=== PATIENT | male | born 1980 | race Caucasian/White ===

== ENCOUNTER 2025-01-24 23:40 | Emergency (ER) | payer OTHER, SELFPAY ==
--- NOTE | 2025-01-24 23:41 | ECG_ITS ---
[facility] Test Date: 2025-01-24 Pat Name: Aiden Marie Department: Room: Gender: Male Assessment Consultant: : 1980 Requested By: Joshua Becerra Order Number: [id number] Kalia MD: Pily Contreras M.D. Measurements Intervals [place] Rate: 80 P: 146 WI: 162 QRS: 124 QRSD: 114 T: 133 QT: 401 QTc: 465 Interpretive Statements SINUS RHYTHM ARM LEADS REVERSED [INVERTED P AND QRS IN I] No previous ECG available for comparison Electronically Signed On 01-26-2025 13:10:11 CDT by Pily Contreras M.D. [id number] [id number]
[2025-01-24 23:45] VITALS: BP 171/90; PULSE 85; RESP 16; O2SAT 97; BMI 28.5
--- NOTE | 2025-01-24 23:56 | XRR_ITS ---
PROCEDURE INFORMATION: Exam: XR Chest Exam date and time: 01/25/2025 12:00 AM Age: 44 years old Clinical indication: Chest wall pain; Additional info: Chest pain, hypertension, left shoulder pain TECHNIQUE: Imaging protocol: Radiologic exam of the chest. Views: 1 view. COMPARISON: No relevant prior studies available. FINDINGS: Lungs: Unremarkable. No consolidation. Pleural spaces: Unremarkable. No pleural effusion. No pneumothorax. Heart/Mediastinum: Unremarkable. No cardiomegaly. Bones/joints: Unremarkable. XR/XR chest 1V portable [id number] IMPRESSION: No acute findings.
--- NOTE | 2025-01-24 23:59 | W.ED.EXTPRO ---
HPI - Extremity Problem General: Chief complaint: Extremity Problem,Nontraumatic Stated complaint: CP SOB Time Seen by Provider: 01/24/25 23:49 History of Present Illness: Patient presents to the ER with bilateral arm complaints. He said last night while he was sleeping he woke up felt his right arm was tingly and it felt like someone put an ice cube and rub it on his arm he rolled over went back to bed and then today was coming out from work he broke out in a sweat and noticed his left arm from the shoulder down hurt. He also had some chest pain at that time. Patient does have a history of 3 stents and [place] multiple years ago. When he got home his checked his blood pressure and it was 170/100. Patient did take his evening dose of metoprolol and 2 81 mg aspirins. When of patient arrived to the ER his blood pressure 171/90. Patient is no longer having any pain however he decided he wanted to still be checked out. Related Data Allergies Allergy/AdvReac Type Severity Reaction Status Date / Time No Known Allergies Allergy Verified 01/24/25 23:47 Review of Systems General: Reports: 10 or more systems reviewed and unremarkable except in HPI and below Physical Exam Const: COMMON NORMALS: no acute distress, average body habitus, patient oriented x3, no limitations, healthy appearing, alert and well nourished HENMT: COMMON NORMALS: normocephalic, atraumatic, hearing grossly normal bilaterally, external ears normal, Normal external nose present, moist oral mucous membranes and oropharynx normal HEAD & SCALP: normocephalic and atraumatic NOSE: Normal external nose present EXTERNAL EAR: Yes external ears normal Eye: COMMON NORMALS: Equal, round and reactive pupils present, EOMs intact bilaterally, conjunctivae normal and no scleral icterus CONJUNCTIVA: Yes conjunctivae normal PUPIL: Yes Equal, round and reactive pupils present Neck/C-Spine: COMMON NORMALS: full ROM, no lymphadenopathy, supple, no meningeal signs and no JVD Chest: COMMONS NORMALS: normal inspection of the chest and normal palpation of entire chest wall Resp: COMMON NORMALS: normal respiratory effort, No retractions, No use of accessory muscles and clear to auscultation bilaterally AUSCULTATION: clear to auscultation bilaterally Cardio: COMMON NORMALS: no JVD, regular rate, regular rhythm, S1 normal heart sound present, S2 normal heart sound present, No gallops present (Cardio), No clicks present (Cardio), No murmurs present (Cardio) and No rub (Cardio) RATE: regular rate RHYTHM: regular rhythm HEART SOUNDS: S1 normal heart sound present and S2 normal heart sound present GI: COMMON NORMALS: Normal to inspection, nondistended, normoactive bowel sounds present, Soft to palpation, non-tender, No hepatosplenomegaly present and no masses PALPATION: Yes Soft to palpation and Yes No hepatosplenomegaly present Neuro: COMMON NORMALS: patient oriented x3 SENSORIUM/ORIENTATION: Yes alert MENINGEAL SIGNS: Yes no meningeal signs Course Vital Signs: Vital signs: Vital Signs Pulse Rate 62 01/25/25 01:36 Respiratory Rate 12 01/25/25 01:36 Blood Pressure 163/86 01/25/25 01:36 Pulse Oximetry 98 01/25/25 01:36 Oxygen Delivery Me thod Room Air 01/24/25 23:45 MDM - Extremity (Nontraumatic) Medical Decision Making Your evaluation was unremarkable lab work all within normal limits as well as EKG showed no significant changes chest x-ray was negative. Patient will be discharged home. Medical Records I reviewed the patient's medical records. Lab Data I reviewed the patient's lab results. 01/24/25 23:54 01/24/25 23:54 Radiology Impressions Chest X-Ray 01/24/25 23:56 IMPRESSION: No acute findings. Laboratory Results WBC 6.26 10^3/uL (3.29-11.43) 01/24/25 23:54 RBC 4.56 10^6/uL (3.85-5.65) 01/24/25 23:54 Hgb 13.50 g/dL (11.27-16.99) 01/24/25 23:54 Hct 40.8 % (37-53) 01/24/25 23:54 MCV 89.5 fl (82-101) 01/24/25 23:54 MCH 29.6 pg (27-33) 01/24/25 23:54 MCHC 33.1 g/dL (30-55) 01/24/25 23:54 RDW 12.1 % (12.1-15.1) 01/24/25 23:54 Plt Count 175 10^3/cmm (157-399) 01/24/25 23:54 MPV 10.5 fL (7.4-10.4) H 01/24/25 23:54 Neut % (Auto) 66.0 % 01/24/25 23:54 Lymph % (Auto) 25.9 % 01/24/25 23:54 [place] % (Auto) 6.4 % 01/24/25 23:54 Eos % (Auto) 1.3 % 01/24/25 23:54 Baso % (Auto) 0.2 % 01/24/25 23:54 Neut # (Auto) 4.14 10^3/uL (1.8-7.7) 01/24/25 23:54 Lymph # (Auto) 1.6 10^3/uL (0.8-4.8) 01/24/25 23:54 [place] # (Auto) 0.4 10^3/uL (0.2-0.9) 01/24/25 23:54 Eos # (Auto) 0.1 10^3/uL (0.0-0.8) 01/24/25 23:54 Baso # (Auto) 0.0 10^3/uL (0.0-0.1) 01/24/25 23:54 Nucleated RBC % (auto) 0 % 01/24/25 23:54 Nucleated RBCs # 0.0 /100WBC 01/24/25 23:54 Sodium 142 mmol/L (136-145) 01/24/25 23:54 Potassium 4.0 mmol/L (3.5-5.1) 01/24/25 23:54 Chloride 104 mmol/L (98-107) 01/24/25 23:54 Carbon Dioxide 25 mmol/L (22-29) 01/24/25 23:54 Anion Gap 17.0 (5-19) 01/24/25 23:54 BUN 15 mg/dL (6-20) 01/24/25 23:54 Creatinine 0.8 mg/dL (0.7-1.2) 01/24/25 23:54 GFR Calculation 106.0 mL/min (90-130) 01/24/25 23:54 Glucose 146 mg/dL (65-115) H 01/24/25 23:54 Calculated Osmolality 297 mOsm/kg (285-295) H 01/24/25 23:54 Calcium 9.1 mg/dL (8.5-10.5) 01/24/25 23:54 Magnesium 1.9 mg/dL (1.7-2.3) 01/24/25 23:54 Total Bilirubin 0.4 mg/dL (0.15-1.2) 01/24/25 23:54 AST 24 U/L (0-40) 01/24/25 23:54 ALT 34 U/L (0-41) 01/24/25 23:54 Alkaline Phosphatase 67 U/L (40-130) 01/24/25 23:54 Troponin T Baseline < 6 ng/L (0-15) 01/24/25 23:54 Total Protein 6.8 g/dL (6.6-8.7) 01/24/25 23:54 Albumin 4.4 g/dL (3.5-5.2) 01/24/25 23:54 Globulin 2.4 g/dL (1.3-4.6) 01/24/25 23:54 Urine Color Yellow (Yellow) 01/25/25 00:14 Urine Appearance Clear (CLEAR) 01/25/25 00:14 Urine pH 5 (5-7) 01/25/25 00:14 Ur Specific [place] 1.030 (1.005-1.030) 01/25/25 00:14 Urine Protein Neg (Negative) 01/25/25 00:14 Urine Glucose (UA) Norm (Normal) 01/25/25 00:14 Urine Ketones Negative (Negative) 01/25/25 00:14 Urine Blood Neg (Negative) 01/25/25 00:14 Urine Nitrate Negative (Negative) 01/25/25 00:14 Urine Bilirubin Neg (Negative) 01/25/25 00:14 Urine Urobilinogen Neg mg/dL (Negative) 01/25/25 00:14 Ur Leukocyte Esterase Negative (Negative) 01/25/25 00:14 Urine RBC 0-2 /hpf (0-2) 01/25/25 00:14 Urine WBC 0-5 /hpf (0-5) 01/25/25 00:14 Ur Squamous Epith Cells 0-5 /hpf (0-5) 01/25/25 00:14 Amorphous Sediment Not Reportable 01/25/25 00:14 Urine Bacteria None seen /hpf (NONE) 01/25/25 00:14 Hyaline Casts 0.81 /lpf 01/25/25 00:14 All radiology interpretation(s) finalized by discharge Discharge Plan Discharge Patient Disposition: Home Clinical Impression: Acute shoulder pain, Atypical chest pain Condition: Stable Discharge Orders: Discharge ED (Routine); Ordered 01/25/25 Ordered By: Joshua Becerra Patient Instructions: Chest Pain - Noncardiac, Shoulder Pain (ED) Activity Restrictions/Additional Instructions: Thank you for choosing [facility] for your healthcare needs today. Please realize that you were seen in the emergency department and that we are providing you with an emergency medical screening exam and this may not be a complete and all exclusive of all testing and/or medical workup we may need to determine your element or severity of your illness. It is very important that you follow-up as instructed with your primary care provider or specialist for the additional evaluation and to discuss your medical treatment plan. You may return to the emergency department should you have concerns or if your condition changes or worsens in any way. Print Language: Tamazight Coding Level of Care Code ED Line Painting Machine Operator for Jeannine Nation
[2025-01-25 00:13] LABS: Basophils % 0.2 %; Eosinophils # 0.1 10^3/uL (0.0-0.8); Eosinophils % 1.3 %; Hematocrit 40.8 % (37-53); Lymphocytes # 1.6 10^3/uL (0.8-4.8); Lymphocytes % 25.9 %; Mean Corpuscular HGB Conc 33.1 g/dL (30-55); Mean Corpuscular Hemoglobin 29.6 pg (27-33); Mean Corpuscular Volume 89.5 fl (82-101); Mean Platelet Volume 10.5 fL (7.4-10.4); Monocytes # 0.4 10^3/uL (0.2-0.9); Monocytes % 6.4 %; Neutrophils # 4.14 10^3/uL (1.8-7.7); Nucleated Red Blood Cells % 0 %; Platelet Count 175 10^3/cmm (157-399); Red Blood Count 4.56 10^6/uL (3.85-5.65); Red Cell Distribution Width 12.1 % (12.1-15.1); White Blood Count 6.26 10^3/uL (3.29-11.43)
[2025-01-25 00:18] VITALS: BP 163/86; PULSE 71; RESP 15; O2SAT 97
[2025-01-25 00:21] LABS: Add Urine Microscopic? NO
[2025-01-25 00:25] LABS: Bilirubin Urine Neg (Negative); Blood Urine Neg (Negative); Glucose Urine UA Norm (Normal); Ketones Urine Negative (Negative); Leukocyte Esterase Urine Negative (Negative); Nitrate Urine Negative (Negative); Protein Urine Neg (Negative); Urine Appearance Clear (CLEAR); Urine Color Yellow (Yellow); Urobilinogen Urine Neg (Negative); pH Urine 5 (5-7)
[2025-01-25 00:26] LABS: Bacteria Urine None Seen /hpf; Charge for UA Resulting for Rev; Hyaline Casts Urine 0.81 /lpf; RBC Urine 0-2 /hpf (0-2); Squamous Epithelial Cell Urine 0-5 /hpf (0-5); WBC Urine 0-5 /hpf (0-5)
[2025-01-25 00:33] LABS: Troponin(5th) Baseline < 6 ng/L (0-15)
[2025-01-25 00:34] LABS: Alanine Aminotransferase 34 U/L (0-41); Albumin Level 4.4 g/dL (3.5-5.2); Alkaline Phosphatase 67 U/L (40-130); Aspartate Amino Transferase 24 U/L (0-40); Blood Urea Nitrogen 15 mg/dL (6-20); Calcium 9.1 mg/dL (8.5-10.5); Carbon Dioxide 25 mmol/L (22-29); Chloride 104 mmol/L (98-107); Creatinine Clr Calc Pharmacy 140.1509; Globulin 2.4 g/dL (1.3-4.6); Glucose 146 mg/dL (65-115); Magnesium 1.9 mg/dL (1.7-2.3); Osmolality Calculated 297 mOsm/kg (285-295); Sodium 142 mmol/L (136-145); Total Bilirubin 0.4 mg/dL (0.15-1.2); Total Protein 6.8 g/dL (6.6-8.7)
[2025-01-25 01:36] VITALS: BP 163/86; PULSE 62; RESP 12; O2SAT 98
[2025-01-25 01:45] VITALS: BP 163/86; PULSE 64; O2SAT 99
== END 2025-01-25 01:41 | disposition home or self-care (01) ==
PROVIDERS: Emergency Provider Emergency Medicine
DX: M25.512 Pain in left shoulder (principal); R07.89 Other chest pain
CPT/HCPCS: 71045; 80053; 81003; 83735; 84484; 85025; 93005; 99285

== ENCOUNTER 2025-02-24 21:27 | Emergency (ER) | payer SELFPAY ==
--- NOTE | 2025-02-24 21:28 | XRR_ITS ---
PROCEDURE INFORMATION: Exam: XR Chest Exam date and time: 02/24/2025 9:47 PM Age: 44 years old Clinical indication: Pain; Chest pressure; Prior surgery; Surgery date: 6+ months; Surgery type: Cardiac stent x 3; Additional info: Posterior lt chest pain radiating up lt neck TECHNIQUE: Imaging protocol: Radiologic exam of the chest. Views: 1 view. COMPARISON: CR (CHEST, ) 01/25/2025 12:00 AM FINDINGS: Lungs: Unremarkable. No consolidation. Pleural spaces: Unremarkable. No pleural effusion. No pneumothorax. Heart/Mediastinum: Unremarkable. No cardiomegaly. Bones/joints: Unremarkable. XR/XR chest 1V portable [id number] IMPRESSION: No acute findings.
--- NOTE | 2025-02-24 21:28 | ECG_ITS ---
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 Measurements Intervals [place] Rate: 59 P: 67 [place]: 172 QRS: 50 QRSD: 109 T: 57 QT: 446 QTc: 445 Interpretive Statements SINUS BRADYCARDIA Compared to ECG 01/24/2025 23:41:22 Sinus rhythm no longer present Electronically Signed On 02-25-2025 15:07:25 CDT by Pily Contreras M.D. [email or web address] [id number]
[2025-02-24 21:29] VITALS: BP 148/100; PULSE 60; RESP 18; TEMP 37.1; O2SAT 98; BMI 28.5
--- NOTE | 2025-02-24 21:53 | XRR_ITS ---
PROCEDURE INFORMATION: Exam: XR Cervical Spine Exam date and time: 02/24/2025 10:15 PM Age: 44 years old Clinical indication: C/O left sided neck pain. No injury. TECHNIQUE: Imaging protocol: Radiologic exam of the cervical spine. Views: 2 or 3 views. COMPARISON: CR (CHEST, ) 02/24/2025 9:47 PM FINDINGS: Bones/joints: Lower cervical spine moderate to severe disc space narrowing and productive degenerative endplate changes. Soft tissues: Unremarkable. XR/XR cervical spine 3V* [id number] IMPRESSION: 1. Negative for fracture or dislocation. 2. Lower cervical spine moderate to severe disc space narrowing and productive degenerative endplate changes.
--- NOTE | 2025-02-24 21:54 | ED_ITS ---
HPI - Chest Pain 2 General: Chief Complaint: Chest Pain Stated Complaint: CHEST PAIN Time Seen by Provider: 02/24/25 21:39 History of Present Illness: 44-year-old male patient he tells me charlie t 19 years ago he had 3 stents placed in his coronary arteries. He presents with neck pain, radiating into his left upper chest and left shoulder and somewhat down his arm. He stated that it started this morning, and worsened over the day. When he woke up from a nap pain was much more intense, so much so that he nearly passed out . No shortness of breath. No significant dizziness. No diaphoresis. No vomiting. Related Data Previous Rx's ?Medication ?Instructions ?Recorded hydrocodone 5 mg-acetaminophen 325 1 tab PO Q8H PRN pa in #7 tabs 02/24/25 mg tablet methylprednisolone 4 mg tablets in See Rx Instructions PO .COMPLEX 02/24/25 a dose pack (Medrol (Ty)) #21 ea Allergies Allergy/AdvReac Type Severity Reaction Status Date / Time No Known Allergies Allergy Verified 01/24/25 23:47 Physical Exam 2 Const: COMMON NORMALS: no acute distress GENERAL APPEARANCE: cooperative; not ill appearing and not frail appearing HENMT: COMMON NORMALS: normocephalic, atraumatic and Normal external nose present HEAD & SCALP: normocephalic and atraumatic FACE & SINUS: normal facial exam and face symmetric NOSE: Normal external nose present Eye: COMMON NORMALS: Equal, round and reactive pupils present and EOMs intact bilaterally PUPIL: Yes Equal, round and reactive pupils present Neck/C-Spine: GENERAL: Yes trachea midline OTHER: Paraspinal musculature tenderness at the base of the left cervical spine. Chest: CHEST: Yes Symmetrical chest wall rise and Yes tenderness Resp: COMMON NORMALS: normal respiratory effort, No retractions, No use of accessory muscles and clear to auscultation bilaterally AUSCULTATION: clear to auscultation bilaterally Cardio: COMMON NORMALS: regular rate and regular rhythm RATE: regular rate RHYTHM: regular rhythm GI: COMMON NORMALS: Normal to inspection, nondistended, normoactive bowel sounds present Extremity: COMMON NORMALS: no pedal edema Neuro: GAMAL COMA SCALE: document GCS findings Gamal coma scale eye opening: Spontaneous Gamal coma scale verbal response: Orientated [place] coma scale motor response: Obey commands Gamal coma scale total score: 15 S ENSORY EXAM: Yes extremities (intact) Psych: COMMON NORMALS: speech normal SPEECH: Yes normal speech Skin: COMMON NORMALS: no rashes or lesions noted GENERAL SKIN EXAM: no rashes or lesions noted Course 2 Vital Signs: Vital signs: Vital Signs Temperature 98.8 F 02/24/25 21:29 Pulse Rate 58 L 02/25/25 00:39 Respiratory Rate 12 02/25/25 00:39 Blood Pressure 129/66 02/25/25 00:39 Pulse Oximetry 96 02/25/25 00:39 Oxygen Delivery Me thod Room Air 02/24/25 22:43 MDM - Chest Pain Medical Decision Making Pain is reproducible on palpation of the left base of the neck. He has significant degenerative findings on cervical spine x-ray at this level. His chest x-ray is negative. His EKG is normal. BMP and CBC are normal as well. His troponin is nondetectable. Lipase is 40. Symptoms are improved after pain medication, lorazepam, steroids. He will go on a tapering dose of steroid, short course of pain medication for cervical radiculopathy. Close outpatient follow-up. Return for new or worsening symptoms. Lab Data 02/24/25 21:42 02/24/25 21:42 Radiology Impressions Chest X-Ray 02/24/25 21:28 IMPRESSION: No acute findings. Cervical Spine X-Ray 02/24/25 21:53 IMPRESSION: 1. Negative for fracture or dislocation. 2. Lower cervical spine moderate to severe disc space narrowing and productive degenerative endplate changes. Laboratory Results WBC 4.77 10^3/uL (3.29-11.43) 02/24/25 21:42 RBC 4.68 10^6/uL (3.85-5.65) 02/24/25 21:42 Hgb 13.90 g/dL (11.27-16.99) 02/24/25 21:42 Hct 42.0 % (37-53) 02/24/25 21:42 MCV 89.7 fl (82-101) 02/24/25 21:42 MCH 29.7 pg (27-33) 02/24/25 21:42 MCHC 33.1 g/dL (30-55) 02/24/25:42 RDW 12.1 % (12.1-15.1) 02/24/25 21:42 Plt Count 177 10^3/cmm (157-399) 02/24/25 21:42 MPV 10.7 fL (7.4-10.4) H 02/24/25 21:42 Neut % (Auto) 56.6 % 02/24/25 21:42 Lymph % (Auto) 33.3 % 02/24/25 21:42 [place] % (Auto) 5.9 % 02/24/25 21:42 Eos % (Auto) 3.4 % 02/24/25 21:42 Baso % (Auto) 0.6 % 02/24/25 21:42 Neut # (Auto) 2.70 10^3/uL (1.8-7.7) 02/24/25 21:42 Lymph # (Auto) 1.6 10^3/uL (0.8-4.8) 02/24/25 21:42 [place] # (Auto) 0.3 10^3/uL (0.2-0.9) 02/24/25 21:42 Eos # (Auto) 0.2 10^3/uL (0.0-0.8) 02/24/25 21:42 Baso # (Auto) 0.0 10^3/uL (0.0-0.1) 02/24/25 21:42 Nucleated RBC % (auto) 0 % 02/24/25 21:42 Nucleated RBCs # 0.0 /100WBC 02/24/25 21:42 PT 12.70 SECONDS (12.1-14.9) 02/24/25 21:42 INR 0.89 (0.8-1.2) 02/24/25 21:42 Sodium 140 mmol/L (136-145) 02/24/25 21:42 Potassium 3.8 mmol/L (3.5-5.1) 02/24/25 21:42 Chloride 105 mmol/L (98-107) 02/24/25 21:42 Carbon Dioxide 22 mmol/L (22-29) 02/24/25 21:42 Anion Gap 16.8 (5-19) 02/24/25 21:42 BUN 15 mg/dL (6-20) 02/24/25 21:42 Creatinine 0.6 mg/dL (0.7-1.2) L 02/24/25 21:42 GFR Calculation 147.8 mL/min (90-130) H 02/24/25 21:42 Glucose 113 mg/dL (65-115) 02/24/25 21:42 Calculated Osmolality 292 mOsm/kg (285-295) 02/24/25 21:42 Calcium 9.0 mg/dL (8.5-10.5) 02/24/25 21:42 Total Bilirubin 0.3 mg/dL (0.15-1.2) 02/24/25 21:42 AST 25 U/L (0-40) 02/24/25 21:42 ALT 31 U/L (0-41) 02/24/25 21:42 Alkaline Phosphatase 66 U/L (40-130) 02/24/25 21:42 Troponin T Baseline < 6 ng/L (0-15) 02/24/25 21:42 Total Protein 6.5 g/dL (6.6-8.7) L 02/24/25 21:42 Albumin 4.0 g/dL (3.5-5.2) 02/24/25 21:42 Globulin 2.5 g/dL (1.3-4.6) 02/24/25 21:42 Lipase 40 U/L (13-60) 02/24/25 21:42 All radiology interpretation(s) finalized by discharge Discharge Plan Discharge Patient Disposition: Home Clinical Impression: Cervical radiculopathy Condition: Stable Prescriptions: New hydrocodone-acetaminophen 5-325 mg tablet 1 tab PO Q8H PRN (Reason: pain) Qty: 7 0RF methylprednisolone [Medrol (Ty)] 4 mg tablets,dose pack See Rx Instructions .ROUTE .COMPLEX Qty: 21 0RF Rx Instructions: orally per package directions Discharge Orders: Discharge ED (Routine); Ordered 02/24/25 Ordered By: Carmine De La Cruz Referrals: Pablo Vizcarra MD [Primary Care Provider, Family Practice] - 1-3 days Patient Instructions: Cervical Radiculopathy (ED), Opioid Safety, Pain Management Activity Restrictions/Additional Instructions: Return for shortness of breath, fever, vomiting, worsening pain despite treatment, or other concerning symptoms. Call your doctor tomorrow for a follow-up appointment. Print Language: Danish Coding Level of Care Code ED Laborer Laboratory for Jeannine Nation
[2025-02-24 21:55] LABS: Basophils % 0.6 %; Eosinophils # 0.2 10^3/uL (0.0-0.8); Eosinophils % 3.4 %; Lymphocytes # 1.6 10^3/uL (0.8-4.8); Lymphocytes % 33.3 %; Mean Corpuscular HGB Conc 33.1 g/dL (30-55); Mean Corpuscular Hemoglobin 29.7 pg (27-33); Mean Corpuscular Volume 89.7 fl (82-101); Mean Platelet Volume 10.7 fL (7.4-10.4); Monocytes # 0.3 10^3/uL (0.2-0.9); Monocytes % 5.9 %; Neutrophils % 56.6 %; Nucleated Red Blood Cells % 0 %; Platelet Count 177 10^3/cmm (157-399); Red Blood Count 4.68 10^6/uL (3.85-5.65); Red Cell Distribution Width 12.1 % (12.1-15.1); White Blood Count 4.77 10^3/uL (3.29-11.43)
[2025-02-24] MEDS: ondansetron 2 mg/ML SDV 2 mL 4 MG IVP (22:04)
[2025-02-24 22:05] VITALS: RESP 18
[2025-02-24] MEDS: morphine 4 mg/mL SDV 1 mL IVP (22:05)
[2025-02-24 22:06] VITALS: BP 148/93; PULSE 70; RESP 16; O2SAT 99
[2025-02-24 22:07] LABS: INR 0.89 (0.8-1.2)
[2025-02-24 22:12] LABS: Alanine Aminotransferase 31 U/L (0-41); Alkaline Phosphatase 66 U/L (40-130); Aspartate Amino Transferase 25 U/L (0-40); Blood Urea Nitrogen 15 mg/dL (6-20); Carbon Dioxide 22 mmol/L (22-29); Chloride 105 mmol/L (98-107); Creatinine Clr Calc Pharmacy 186.8679; Globulin 2.5 g/dL (1.3-4.6); Glomerular Filtration Rate 147.8 mL/min (90-130); Glucose 113 mg/dL (65-115); Lipase 40 U/L (13-60); Osmolality Calculated 292 mOsm/kg (285-295); Sodium 140 mmol/L (136-145); Total Bilirubin 0.3 mg/dL (0.15-1.2); Total Protein 6.5 g/dL (6.6-8.7)
[2025-02-24 22:13] LABS: Anion Gap 16.8 (5-19); Potassium 3.8 mmol/L (3.5-5.1); Troponin(5th) Baseline < 6 ng/L (0-15)
[2025-02-24 22:43] VITALS: BP 146/101; PULSE 89; RESP 16; O2SAT 98
--- NOTE | 2025-02-24 23:28 | ECG_ITS ---
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 Measurements Intervals [place] Rate: 58 P: 68 HI: 169 QRS: 67 QRSD: 110 T: 59 QT: 447 QTc: 439 Interpretive Statements SINUS BRADYCARDIA Compared to ECG 02/24/2025 21:33:39 No significant changes Electronically Signed On 02-25-2025 15:20:40 CDT by Pily Contreras M.D. [email or web address] [id number]
[2025-02-24] MEDS: LORazepam 1 MG/0.5 ML injection (23:58)
[2025-02-24] MEDS: dexamethasone 4 mg/mL INJ 8 MG IVP (23:58)
[2025-02-25] VITALS: BP 129/66; PULSE 87; RESP 12; O2SAT 97
[2025-02-25 00:39] VITALS: BP 129/66; PULSE 58; RESP 12; O2SAT 96
== END 2025-02-25 00:17 | disposition home or self-care (01) ==
PROVIDERS: Emergency Medicine; Emergency Provider Emergency Medicine
DX: M54.12 Radiculopathy, cervical region (principal)
CPT/HCPCS: 71045; 72040; 80053; 83690; 84484; 85025; 85610; 93005; 96374; 96375; 99285; J1100; J2060; J2270; J2405